=== PATIENT | female | born 1980 | race American Indian/Alaskan Native ===

== ENCOUNTER 2019-02-24 11:10 | Emergency (ER) | payer BC ==
--- NOTE | 2019-02-24 11:27 | Event Note ---
ED Screening Note Date of service: 02/24/19 Time: 11:24 ED Screening Note: This is a 38 y.o. F. that presents to the ER with lower abdominal pain and back pain for 8 hours. Reports pain as sharp radiating pain. LMP 02/24/2019 - n/v/d, urinary frequency, urgency, dysuria, & vaginal discharge This initial assessment/diagnostic orders/clinical plan/treatment(s) is/are subject to change based on patients health status, clinical progression and re- assessment by fellow clinical providers in the ED. Further treatment and workup at subsequent clinical providers discretion. Patient/guardian urged not to elope from the ED as their condition may be serious if not clinically assessed and managed. Initial orders include: Labs
[2019-02-24 11:58] LABS: Basophils # (Auto) 0.1 K/mm3 (0.0-0.1); Basophils % (Auto) 0.8 % (0.0-1.8); Eosinophils # (Auto) 0.1 K/mm3 (0.0-0.4); Eosinophils % (Auto) 1.1 % (0.0-4.3); Hematocrit 40.4 % (30.3-42.9); Hemoglobin 13.3 gm/dl (10.1-14.3); Lymphocytes # (Auto) 2.3 K/mm3 (1.2-5.4); Lymphocytes % (Auto) 29.7 % (13.4-35.0); Mean Corpuscular HGB Conc 33 % (30-34); Mean Corpuscular Volume 84 fl (79-97); Monocytes # (Auto) 0.5 K/mm3 (0.0-0.8); Monocytes % (Auto) 6.6 % (0.0-7.3); Platelet Count 221 K/mm3 (140-440); Red Cell Distribution Width 13.9 % (13.2-15.2)
[2019-02-24 12:12] LABS: Bilirubin,Urine NEG (Negative); Blood,Urine SM (Negative); Color,Urine Yellow (Yellow); Mucus,Urine FEW /HPF; Protein,Urine <15 mg/dL mg/dL (Negative); Urobilinogen,Urine < 2.0 mg/dL (<2.0); WBC,Urine < 1.0 /HPF (0.0-6.0)
[2019-02-24 12:24] LABS: Alanine Aminotransferase 9 units/L (7-56); Albumin 4.5 g/dL (3.9-5); BUN/Creatinine Ratio 13; Blood Urea Nitrogen 8 mg/dL (7-17); Calcium 9.1 mg/dL (8.4-10.2); Hemolysis Index 8
[2019-02-24] MEDS ORDERED: TYLENOL PO ONE (13:11)
--- NOTE | 2019-02-24 13:13 | Emergency Department Report ---
ED Female HPI - General Chief complaint: Vaginal Bleeding Stated complaint: POSS MISCARRIAGE Time Seen by Provider: 02/24/19 11:24 Source: patient Mode of arrival: Ambulatory Limitations: No Limitations - History of Present Illness Initial comments: This is a 38-year-old female who presents to ED complaining of vaginal bleeding that began this morning. Patient also complains of associated lower pelvic and back pain that started after bleeding. Patient states that she is not sure she is . Patient states that she noticed a large blood clot on one of the temples. Patient states since about 3 AM this morning she has used about 6 tampons. Patient noted that her last menstrual period was 01/26/2019. She denies dysuria, fever, chills, nausea vomiting MD Complaint: vaginal bleeding - Related Data Previous Rx's Medication Instructions Recorded Last Taken Type Ibuprofen [Motrin] 800 mg PO Q8HR #30 tablet 02/24/19 Unknown Rx traMADol [Ultram 50 MG tab] 50 mg PO Q6HR #10 tablet 02/24/19 Unknown Rx Allergies Allergy/AdvReac Type Severity Reaction Status Date / Time codeine Allergy Vomiting Verified 02/24/19 11:11 ED Review of Systems ROS: Stated complaint: POSS MISCARRIAGE Other details as noted in HPI Comment: All other systems reviewed and negative ED Past Medical Hx - Past Medical History Previous Medical History?: Yes Additional medical history: chrons. ovarian cyst - Surgical History Past Surgical History?: Yes Hx Appendectomy: Yes Additional Surgical History: ectopic . laproscopy x 2 - Social History Smoking Status: Current Some Day Smoker Substance Use Type: Marijuana - Medications Home Medications: Home Medications Medication Instructions Recorded Confirmed Last Taken Type Ibuprofen [Motrin] 800 mg PO Q8HR #30 tablet 02/24/19 Unknown Rx traMADol [Ultram 50 MG tab] 50 mg PO Q6HR #10 tablet 02/24/19 Unknown Rx ED Physical Exam - General Limitations: No Limitations General appearance: alert, in no apparent distress - Head Head exam: Present: atraumatic, normocephalic - Eye Eye exam: Present: normal appearance - ENT ENT exam: Present: mucous membranes moist - Neck Neck exam: Present: normal inspection - Respiratory Respiratory exam: Present: normal lung sounds bilaterally. Absent: respiratory distress - Cardiovascular Cardiovascular Exam: Present: regular rate, normal rhythm. Absent: systolic murmur, diastolic murmur, rubs, gallop - GI/Abdominal GI/Abdominal exam: Present: soft, normal bowel sounds - Extremities Exam Extremities exam: Present: normal inspection - Back Exam Back exam: Present: normal inspection - Neurological Exam Neurological exam: Present: alert, oriented X3 - Psychiatric Psychiatric exam: Present: normal affect, normal mood - Skin Skin exam: Present: warm, dry, intact, normal color. Absent: rash ED Course Vital Signs 02/24/19 02/24/19 11:15 14:58 Temperature 97.9 F Pulse Rate 68 58 L Respiratory 18 18 Rate Blood Pressure 126/76 Blood Pressure 124/81 [Right] O2 Sat by Pulse 100 Oximetry ED Medical Decision Making - Lab Data Result diagrams: 02/24/19 11:36 02/24/19 11:36 Critical care attestation.: If time is entered above; I have spent that time in minutes in the direct care of this critically ill patient, excluding procedure time. ED Disposition Clinical Impression: Dysmenorrhea Disposition: DC- TO HOME OR SELFCARE Is pt being admited?: No Does the pt Need Aspirin: No Condition: Stable Instructions: Dysmenorrhea (ED) Additional Instructions: Make sure to follow up with the primary care physician as discussed. Take all your medications as you've been prescribed. If you have any worsening symptoms or develop new symptoms please return to ED immediately. Prescriptions: Ibuprofen [Motrin] 800 mg PO Q8HR #30 tablet traMADol [Ultram 50 MG tab] 50 mg PO Q6HR #10 tablet Referrals: [facility] [Provider Group] - 3-5 Days [facility] [Provider Group] - 3-5 Days Forms: Accompanied Note, Work/School Release Form(ED) Time of Disposition: 14:07
[2019-02-24 13:43] LABS: HCG Qualitative,Urine Negative (Negative)
[2019-02-24 15:00] VITALS: BP 124/81
== END 2019-02-24 14:58 | disposition home or self-care (01) ==
LOC: ED 11:10
DX: N94.6 Dysmenorrhea, unspecified (principal); F17.200 Nicotine dependence, unspecified, uncomplicated; F12.10 Cannabis abuse, uncomplicated; Z79.899 Other long term (current) drug therapy; Z90.49 Acquired absence of other specified parts of digestive tract; Z88.5 Allergy status to narcotic agent
CPT/HCPCS: 36415; 80053; 81001; 81025; 84703; 85025